=== PATIENT | male | born 1995 | race Caucasian/White ===

== ENCOUNTER 2019-10-12 08:53 | Emergency (ER) | payer SELFPAY ==
[2019-10-12 09:06] VITALS: BP 145/87; PULSE 90; RESP 18; TEMP 36.9; O2SAT 99; BMI 24.3
--- NOTE | 2019-10-12 09:07 | ECG_ITS ---
Measurements Intervals [place] Rate: 89 P: 72 VA: 150 QRS: 79 QRSD: 104 T: 47 QT: 332 QTc: 405 SINUS RHYTHM No previous ECG available for comparison Electronically Signed On 10-12-2019 13:35:48 SQL SERVER DBA by Lillie Busby M.D. [id number]
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
--- NOTE | 2019-10-12 09:16 | XR_ITS ---
WS: [id number] Portable AP upright chest, 10/12/2019 Clinical Data: chest pain Comparison: None. Findings: No nodules, masses or effusions are seen. The heart is normal. The pulmonary vascularity is not remarkable. No pneumonia or pneumothorax is seen. Monitor leads are on the chest wall. XR/XR chest 1V portable [id number] Impression: Negative chest.
--- NOTE | 2019-10-12 09:41 | DCPLANNER ---
Addendum entered by Le Archibald 10/12/19 09:45: Leslie Gifford. tool crib manager informed patient of the scheduled appointment, patient stated that he would attend the appointment. Original Note: tool crib manager was asked to speak with patient due to no primary care physician. tool crib manager spoke with patient, he stated that he does not have a physician, but would like to have one. tool crib manager gave patient both of the dental financial coordinator applications for the hospital to fill out and turn in. tool crib manager called the [facility], spoke with Yesenia, a follow up appointment was scheduled for Tuesday, October 15, 2019 at 4:00 with DESULPHURING OPERATOR
[2019-10-12 10:09] VITALS: BP 124/78; PULSE 78; RESP 16; O2SAT 99
--- NOTE | 2019-10-19 13:49 | DCPLANNER ---
Patient did not attend appointment scheduled for 10.15.19 at [facility] [place] with Ирина GARCIA.
== END 2019-10-12 10:10 | disposition home or self-care (01) ==
PROVIDERS: Emergency Provider Family Medicine
DX: R07.89 Other chest pain (principal); M94.0 Chondrocostal junction syndrome [Tietze]
CPT/HCPCS: 71045; 93005; 99281

== ENCOUNTER 2021-05-11 05:36 | Emergency (ER) | payer SELFPAY ==
[2021-05-11 05:47] VITALS: BP 130/80; PULSE 83; RESP 17; TEMP 36.8; O2SAT 99; BMI 24.3
[2021-05-11 05:54] VITALS: RESP 15
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
== END 2021-05-11 08:17 | disposition home or self-care (01) ==
PROVIDERS: Emergency Provider Nurse Practitioner Family
DX: S80.01XA Contusion of right knee, initial encounter (principal); V89.2XXA Person injured in unspecified motor-vehicle accident, traffic, initial encounter
CPT/HCPCS: 73562; 73590; 99282

== ENCOUNTER → 2021-10-04 10:52 | Outpatient (BNVA) | payer OTHER, SELFPAY | PROVIDERS: PCP Family Medicine; Visit Provider Nurse Practitioner Family | DX: Z20.822 Contact with and (suspected) exposure to COVID-19 (principal) | CPT/HCPCS: 87635 ==

== ENCOUNTER → 2021-11-14 12:31 | Outpatient (BNVA) | payer OTHER, SELFPAY | PROVIDERS: PCP Family Medicine; Visit Provider Nurse Practitioner Family | DX: Z20.822 Contact with and (suspected) exposure to COVID-19 (principal) | CPT/HCPCS: 87635 ==

== ENCOUNTER → 2021-12-26 11:40 | Outpatient (BNVA) | payer SELFPAY | PROVIDERS: PCP Family Medicine; Visit Provider Nurse Practitioner | DX: R11.2 Nausea with vomiting, unspecified (principal); K52.9 Noninfective gastroenteritis and colitis, unspecified | CPT/HCPCS: 87400 ==